=== PATIENT | female | born 1995 | race Caucasian/White ===

== ENCOUNTER → 2018-08-29 | Outpatient (CLI) | payer BC | END | disposition home or self-care (01) | LOC: CFH 06:54 | PROVIDERS: ATTEND Surgery | DX: I12.9 Hypertensive chronic kidney disease with stage 1 through stage 4 chronic kidney disease, or unspecified chronic kidney disease (principal); N18.2 Chronic kidney disease, stage 2 (mild) | CPT/HCPCS: 93975 ==